=== PATIENT | female | born 1940 | race Caucasian/White ===

== ENCOUNTER 2017-05-16 07:23 | Day surgery (SDC) | payer OTHER ==
[~2017-05-16] VITALS: Ht 162.6 cm; Wt 66.0 kg
[~2017-05-16 07:23] MED LIST: SYNT25TA; [UNRECOGNIZED DRUG - CODE] OP
[2017-05-16 07:52] VITALS: BP 150/93; PULSE 101; RESP 16; TEMP 98.2; O2SAT 97
[2017-05-16] MEDS ORDERED: LEVO75TA3 PO (07:53)
[2017-05-16] MEDS ORDERED: ATOR20TA15 PO (07:53)
[2017-05-16] MEDS ORDERED: LATA0.002 EACH EYE (07:53)
[2017-05-16] MEDS ORDERED: ASPI81TA11 PO (07:53)
[2017-05-16] MEDS ORDERED: COQ-50CA2 (07:53)
[2017-05-16] MEDS ORDERED: diphenhydrAMINE HCL 50 MG CAP PO SCH (08:00)
[2017-05-16] MEDS ORDERED: NS 1000P @30 MLS/HR (KVO) IV SCH (08:00)
[2017-05-16 08:19] LABS: AUTOMATED NEUTROPHIL # 4.4 TH/MM3 (1.8-7.7); BASOPHIL % 0.5 % (0.0-2.0); EOSINOPHIL # 0.1 TH/MM3 (0-0.4); EOSINOPHIL % 1.6 % (0.0-4.0); HEMATOCRIT 41.8 % (35.0-46.0); HEMO FLAGS DIFF FINAL; LYMPH % 20.8 % (9.0-44.0); LYMPHOCYTE # 1.4 TH/MM3 (1.0-4.8); MEAN CELL VOLUME 89.7 FL (80.0-100.0); MEAN CORPUSCULAR HEMOGLOBIN 29.9 PG (27.0-34.0); MEAN CORPUSCULAR HGB CONC 33.3 % (32.0-36.0); MONO % 9.9 % (0.0-8.0); NEUT % 67.2 % (16.0-70.0); PLATELET COUNT 284 TH/MM3 (150-450); RED BLOOD COUNT 4.66 MIL/MM3 (4.00-5.30); RED CELL DISTRIBUTION WIDTH 13.6 % (11.6-17.2); WHITE BLOOD COUNT 6.6 TH/MM3 (4.0-11.0)
[2017-05-16 08:32] LABS: BICARBONATE 29.8 MEQ/L (21.0-32.0); POTASSIUM 3.2 MEQ/L (3.5-5.1)
[2017-05-16 08:33] LABS: APTT (PATIENT) 26.1 SEC (24.3-30.1); INTERNATIONAL NORMALIZED RATIO 0.9 RATIO; PROTHROMBIN TIME - PATIENT 10.2 SEC (9.8-11.6)
[2017-05-16] MEDS ORDERED: HEPARIN-NS/PF INJ 500 ML ONE (09:35)
[2017-05-16] MEDS ORDERED: IOHEXOL 350 MG/ML 50 ML BTL (for Cath Lab) OTHER ONE (09:40)
[2017-05-16] MEDS ORDERED: MIDAZOLAM HCL 2 MG/2 ML VIAL ONE ×2 (09:42→09:58)
[2017-05-16] MEDS ORDERED: VERAPAMIL HCL 5 MG/2 ML VIAL ONE (09:42)
[2017-05-16] MEDS ORDERED: NITROGLYCERIN INJ 5 ML ONE (09:43)
[2017-05-16] MEDS ORDERED: HEPARIN SODIUM - IV 10,000 UNITS/10 ML VIAL ONE (09:43)
--- NOTE | 2017-05-16 10:25 | CATHPROC ---
[facility] HIS Report Study Information Study Number Admission Scheduled Start Study Start [id number] May 16 2017 7:23AM 05/16/2017 May 16 2017 9:42AM Study Type [place] Service Left/Possible PCI Cardiac Catheterization Admit Source Facility Department Other [facility] - Consumer Loan Officer Physician and Clinical Staff Initial [facility] Palliative Senior Np Andrea Waller,RN Recorder Karlene Johns,WOODS RIDER TECH2 Scrub Clemencia Guerrero,PAINTER AND DECORATOR APPRENTICE TECH2 Procedures Performed Procedure Location (Site) Vessel Name Coronary Angiograms LCA Left Coronary Coronary Angiograms RCA Right Coronary Equipment Time Flame Cutting Machine Operator Description Size Mfg Part Number Used/Scraped TRANSDUCER, TRUWAVE [id number] 09:43 TUCKER HERNANDEZ * Used W/STOCKCOCK *[id number] [id number] *[id number] [id number] *[id number] 09:43 [employer]revo PACK, CCL CUSTOM * Used *[id number] 09:43 [employer]re[employer] SUPPORT, ARTERIAL ADULT [id number] Used BAND, RADIAL COMPRESSION TR [id number] 10:10 [employer] MEDICAL 24CM Used SHORT 24 *[id number] 09:43 [email or web address] WIRE, 3MMJ .035 180CM 180CM Used *[id number] 09:43 NAMIC MANIFOLD, 4 PORT * Used *[id number] 09:43 [employer]ED OMNIPAQUE, 350 MG, 150ML 150ML [id number] Used [id number] 09:43 [employer] MEDICAL BLANKET,WARM AIR CCL * Used *[id number] SHEATH, FR6 TRANSRADIAL 09:43 The Political Student FR 6 [id number] Used SLENDER 10CM History: Current Medications Medication Dosage/Unit Route Frequency Last Date/Time Taken ASA Statins (any) Synthroid History: Allergies Allergy Reaction No Known Allergies History: Risk Factors Family History of Hypertension Dyslipidemia Previous [place] Previous Heart Failure Premature CAD No Yes No No No Prior Valve Prior PCI Prior CABG Surgery No No No Cerebrovascular Peripheral Artery Chronic Lung On Dialysis Diabetes Disease Disease Disease No No No No No History: Symptoms/Diagnosis Selection Items SOB History: Other Disease Selection Items Cancer Renal Failure/Insufficiency History: Other Current Smoker No Labs Hgb (g/dl) Hct (%) WBC (l/cumm) Platelets (thousands) 12.00-18.00 37.00-55.00 4.80-10.80 140.00-450.00 13.9 41.8 6.6 284 Glucose (mg/dl) BUN (mg/dl) Creatinine (mg/dl) BUN:Creatinine (1:x) 60.00-110.00 8.00-20.00 0.10-9.00 10.00-20.00 90 15 0.9 16.7 Na (meq/l) K (meq/l) Cl (meq/l) CO2 (mmol/L) 138.00-146.00 3.80-5.10 101.00-111.00 23.00-30.00 143 3.2 106 29.8 PT (sec) PTT (sec) INR (PTT:PT) 9.40-11.40 25.10-32.70 0.50-2.00 10.2 26.1 0.9 CPK-MB (ng/ML) 0.00-7.00 Not Drawn Medication Medication Total Dose (Bolus/Oral) Medication Total Dosage/Unit 1% XYLOCAINE 20 mL FENTANYL 50 mcg OXYGEN 2 l/min RADIAL COCKTAIL 5 mL (Bolus) VERSED 2 mg Medications (Bolus/Oral) Medication Time Given Dosage/Unit Administered By Reason VERSED 05/16/2017 9:57:17 AM 1 mg Andrea Waller 1 mg VERSED given in lab by Andrea Waller RN in Left Antecubital via Peripheral IV. VERSED 05/16/2017 10:01:44 AM 1 mg Andrea Waller 1 mg VERSED given in lab by Andrea Waller RN in Left Antecubital via Peripheral IV. FENTANYL 05/16/2017 10:01:52 AM 50 mcg Andrea Waller 50 mcg FENTANYL given in lab by Andrea Waller RN in Left Antecubital via Peripheral IV. 1% XYLOCAINE 05/16/2017 10:02:11 AM 20 mL Almas Isaacs Patient arrived on 20 mL 1% XYLOCAINE given by Almas Isaacs in Right Radial via Subcutaneous. Ntg 200mcg Verapamil 2.5mg Heparin RADIAL COCKTAIL 05/16/2017 10:03:21 AM 5 mL (Bolus) Almas Isaacs 2500U 5 mL (Bolus) RADIAL COCKTAIL given in lab by Santos-Bhumika, Almas in Right Radial via Radial. Using [Janet ution Name]. Reason: Ntg 200mcg Verapamil 2.5mg Heparin 2500U. OXYGEN 05/16/2017 10:04:09 AM 2 l/min Andrea Waller 2 l/min OXYGEN given in lab by Andrea Waller RN via Nasal. Medication (Drip) Medication Time Given Dosage/Unit Concentration/Unit Diluent (ml) Solutio n IV Solutions 05/16/2017 9:43:53 AM 0 mL (IV) 500 NaCl .9 Patient arrived on IV Solutions in Left Antecubital via Peripheral IV. Pump/Drip Flow = 20 ml/hr usin g NaCl .9. Initial Case Assessment Cardiovascular HR Rhythm NIBP Chest Pain 100 stach 158/98 0 Circulatory - Right Pulses Dorsalis Pedis Femoral Radial 1 2 2 Scale (0,1,2,3,4,d) Circulatory - Left Pulses Dorsalis Pedis Femoral Radial 1 2 Scale (0,1,2,3,4,d) Neurological State Oriented to time-place- Alert Moves all extremities person Respiration - General Respiration Rate SpO2 (%) (B/min) 18 99 Final Case Assessment Cardiovascular HR Rhythm NIBP Chest Pain 89 sr 119/71 0 Circulatory - Right Pulses Dorsalis Pedis Femoral Radial 1 2 2 Scale (0,1,2,3,4,d) Circulatory - Left Pulses Dorsalis Pedis Femoral Radial 1 2 Scale (0,1,2,3,4,d) Neurological State Oriented to time-place- Alert Moves all extremities person Respiration - General Respiration Rate SpO2 (%) O2 (lpm) (B/min) 13 100 2 Chronological Log Time Study Chronological Log 9:40:14 Patient arrived via Bed. 9:40:21 Patient Name, D.O.B, / Armband Verified By R.N. 9:40:27 Pre-op and post- op instructions given; patient acknowledges understanding of instructions. Vitals capture started with the following parameters, Patient=Adult, Interval=5 min, Initial Pr tzarxc=511 mmHg, 9:41:55 Deflation Rate=5 mmHg 9:42:51 JSOH=818/98 mmhg, SpO2=99.0 % 9:43:31 Consent signed by the physician and the patient and verified by the Consumer Loan Officer staff. 9:43:32 Verbal Stimulation=2 Physical Stimulation=2 Airway=2 Respiration=2 TOTAL=8. (0=absent, 1=roland ited, 2=present) 9:43:34 Presedation assessment performed by Consumer Loan Officer RN. 9:43:41 Positive Allens test performed on the right radial and ulnar artery. 9:43:43 Patient has been NPO for More than 6Hrs. 9:43:43 Skin Breakdown-none 9:43:48 Gary Prominences Protected 9:43:52 A # 20 IV was noted in the Antecubital (left). Grade = patent 9:43:53 Patient arrived on IV Solutions in Left Antecubital via Peripheral IV. Pump/Drip Flow = 20 m l/hr using NaCl .9. 9:43:54 History and physical on the chart or being dictated. Assessment: Initial Case, WG=421 BPM, Rhythm=stach, LVJW=558/98 mmhg, Chest Pain=0 Right Pulses: Saeid Ped=1, Femoral=2, Radial=2 9:43:56 Left Pulses: Saeid Ped=1, Femoral=2 Neurological: State=Alert, Ox3, BAUER Respiration: Resp=18 B/min, SpO2=99 % 9:44:23 Reference ECG taken 9:47:34 CH=315 bpm, JCPO=860/90 mmhg, RoJ3=326.0 %, Resp=21 B/min, Pain=0, Jeffrey=10, Haile=2 9:49:28 Right groin and right wrist prepped with 2% chlorhexidine, and draped after a 3 min. waiting time. 9:52:33 HR=94 bpm, HTWB=684/84 mmhg, SpO2=99.0 %, Resp=15 B/min, Pain=0, Jeffrey=10, Haile=2 9:53:41 Pressure channel 1 zeroed. 9:53:50 MD paged 9:56:30 MD responded 9:57:17 1 mg VERSED given in lab by Andrea Waller, RN in Left Antecubital via Peripheral IV. 9:57:34 HR=91 bpm, WEHA=586/86 mmhg, SpO2=98.0 %, Resp=21 B/min 9:57:53 MD arrived. Time Out. Correct patient, correct procedure,correct physician, power injector not loaded with contrast with surgical 10:01:03 team present. Time Out Concurred by MD and individual staff in procedure 10::44 1 mg VERSED given in lab by Andrea Waller, GEMA in Left Antecubital via Peripheral IV. 10::44 Case Start 10::52 50 mcg FENTANYL given in lab by Andrea Waller, RN in Left Antecubital via Peripheral IV. 10:02:11 Patient arrived on 20 mL 1% XYLOCAINE given by Almas Isaacs in Right Radial via Subcut aneous. 10::32 Access site was Radial Artery. right 10::35 HR=91 bpm, ZGSK=584/75 mmhg, SpO2=97.0 %, Resp=15 B/min A SHEATH, FR6 TRANSRADIAL SLENDER 10CM FR 6 was advanced into the Radial (right) using the Perc utaneous 10::02 technique. 5 mL (Bolus) RADIAL COCKTAIL given in lab by Almas Isaacs in Right Radial via Radial. Yi gaytan [Solution Name]. 10:03:21 Reason: Ntg 200mcg Verapamil 2.5mg Heparin 2500U. A JR 4.0 INFINITI CATHETER FR 5 was advanced over a wire. OMNIPAQUE, 350 MG, 150ML 150ML was u sed for 10:03:56 injections. 10:04:09 2 l/min OXYGEN given in lab by Andrea Waller, GEMA via Nasal. Recorded Pressure: Ao, HR=99, Condition=Condition 1 10:04:38 (Aorta) Ao 117/78/97 10:04:55 The RCA was injected and visualized at various angles. OMNIPAQUE, 350 MG, 150ML 150ML use d. After removing the current catheter a JL 3.5 INFINITI CATHETER FR 5 was advanced over a WIRE, 3MMJ .035 180CM 10:06:14 180CM. 10:07:16 The LCA was injected and visualized at various angles. OMNIPAQUE, 350 MG, 150ML 150ML use d. 10:07:32 HR=83 bpm, USIZ=906/67 mmhg, FaU8=378.0 %, Resp=8 B/min, Pain=0, Jeffrey=10, Haile=2 10:09:46 Catheter was removed 10::35 Case End 10:12:29 HR=89 bpm, SDVZ=548/71 mmhg, Resp=13 B/min, Pain=0, Jeffrey=10, Haile=2 Radial Compression Device Used. 12 mLs of air placed in BAND, RADIAL COMPRESSION TR SHORT 24 2 4CM. Affected 10:14:28 hand 99 % O2 saturation. 10:15:14 No case complications noted. 10:15:15 Cine recording checked. 10:15:17 Bedside Report will be given. Assessment: Final Case, HR=89 BPM, Rhythm=sr, FBNH=194/71 mmhg, Chest Pain=0 Right Pulses: Saeid Ped=1, Femoral=2, Radial=2 10:15:21 Left Pulses: Saeid Ped=1, Femoral=2 Neurological: State=Alert, Ox3, BAUER Respiration: Resp=13 B/min, NqN3=699 %, O2=2 lpm 10:17:16 Patient moved to bed 10:19:24 Patient transported to DOCU End Study - Contrast Media Used In Study Contrast Total Opened (mL) Total Used (mL) Total Wasted (mL) Omnipaque 25 25 0 End Study - Maximum Contrast Load Max Contrast Load (mL) 366.7 End Study - Radiation Exposure Fluoro Time (minutes) 2.7 End Study - Sheaths Sheaths Pulled By Sheath Hold Time (min) Clemencia Guerrero End Study - Patient Disposition Complications Transferred To Telemetry Bed
--- NOTE | 2017-05-16 10:42 | MA ---
cc: REINIER PUTNAM DATE: 05/16/2017 DATE OF : 05/27/1936 PROCEDURE PERFORMED 1. Left heart catheterization. 2. Selective right and left coronary angiography. INDICATIONS Severe aortic stenosis. APPROACH Right transradial. PROCEDURE DESCRIPTION Consent signed. The patient was taken to the cardiac cath lab nurse in a fasting state. The right groin and wrist were prepped and draped in a sterile fashion. Using 1% lidocaine for local anesthesia and a micropuncture kit a 6-Czech sheath was inserted into the right radial artery. An antispasmodic cocktail was given then selective right and left coronary angiography was performed with JR4 and a JL 3.5 diagnostic catheters. Angiography was taken in multiple views. The patient has known severe aortic stenosis thus the left ventricle was not crossed. The patient tolerated the procedure well without complications. Estimated blood loss less than 30 cc. Total contrast used 25 cc. The right radial access site was closed with a TR band. ANGIOGRAPHIC RESULTS 1. The right coronary artery is a small codominant vessel. It has a proximal segment DIABETES CLINICAL MANAGER which supplies the midsegment of the right coronary artery through bridging collaterals. The right coronary artery is also filling by collaterals coming from the septals of the LAD. 2. The left main is patent with KARLI-III flow. 3. The LAD is a transapical vessel. It has minimal luminal irregularities throughout. It has two diagonal vessels which are patent and small and also the S1 branches are supplying collaterals to the right coronary artery to the PDA. 4. The left circumflex artery is supplying the PDA. It is a large vessel, has nonobstructive coronary artery disease and minimal luminal irregularities in the midsegment. It is giving off three OM branches which are patent and tortuous as well as the PDA which tapers down distally and is patent. CONCLUSIONS 1. Severe aortic stenosis. 2. One-vessel coronary artery disease with a total occlusion of the proximal segment of the nondominant right coronary artery. RECOMMENDATIONS The patient will go to the DOC unit for post-cath care. She will be referred to the [facility] for follow-up and possible mini AVR in the near future. STS score 2.2%. Reinier Putnam MD INSURANCE CASE MANAGER/BT /10:23 AM /10:34 AM MTDNely
--- NOTE | 2017-05-16 12:25 | EKG ---
Date Performed: 05/16/2017 Time Performed: 07:58:50 PTAGE: 76 years EKG: Sinus rhythm Left axis deviation Right bundle branch block Abnormal ECG PREVIOUS TRACING : 02/10/2000 14.54 Compared to previous tracing, right bundle branch block is now evident. DOCTOR: Ld Allen Interpretating Date/Time 05/16/2017 12:25:14
== END 2017-05-16 13:48 | disposition home or self-care (01) ==
LOC: HDIC 07:23 → HDOC 07:23
PROVIDERS: ATTEND Radiology Vascular & Interventional Radiology
DX: I35.0 Nonrheumatic aortic (valve) stenosis (principal); I45.10 Unspecified right bundle-branch block; E78.00 Pure hypercholesterolemia, unspecified
CPT/HCPCS: 80048; 85025; 85610; 85730; 93005; 93454; C1769; C1893; J1644; J2250; J3010; Q0163; Q9967

== ENCOUNTER → 2017-06-21 | Outpatient (CLI) | payer OTHER ==
[~2017-06-21] MED LIST changes: +ASPI81TA11 PO; +ATOR20TA15 PO; +COQ-50CA2; +IOHEXOL 350 MG/ML 10 ML VIAL (for RAD DIAG) IV ONE; +LATA0.002 EACH EYE; +LEVO75TA3 PO; -SYNT25TA; -[UNRECOGNIZED DRUG - CODE] OP
[2017-06-21 10:35] LABS: ALT (GPT) 30 U/L (10-53); ANION GAP 5 MEQ/L (5-15); AST (GOT) 26 U/L (15-37); BICARBONATE 27.8 MEQ/L (21.0-32.0); BLOOD UREA NITROGEN 15 MG/DL (7-18); CHLORIDE 107 MEQ/L (98-107); GLOMERULAR FILTRATION RATE 66 ML/MIN (>89); SODIUM (NA) 140 MEQ/L (136-145)
[2017-06-21 10:37] LABS: ALKALINE PHOSPHATASE 71 U/L (45-117); TOTAL BILIRUBIN ADULT 0.5 MG/DL (0.2-1.0)
--- NOTE | 2017-06-21 11:47 | RADRPT ---
EXAM DATE/TIME: 06/21/2017 10:12 [facility] COMPARISON: No previous studies available for comparison. INDICATIONS : Evaluate for pneumonia, pneumothorax, or communicable disease. Pre op for aortic valve repair today. MEDICAL HISTORY : None. SURGICAL HISTORY : None. ENCOUNTER: Initial ACUITY: 1 day PAIN SCORE: 0/10 LOCATION: Bilateral chest FINDINGS: PA and lateral views of the chest demonstrate the lungs to be symmetrically aerated without evidence of mass, infiltrate or effusion. Minimal biapical capping. The cardiomediastinal contours are unrema rkable. Osseous structures are intact. CONCLUSION: Minimal biapical capping/scarring. Nothing acute. Romero Parson MD on June 21, 2017 at 11:35 Board Certified Radiologist. This report was verified electronically.
--- NOTE | 2017-06-21 12:09 | PD.CONS ---
History of Present Illness Service CT Surgery Consult Requested By Dr. Santos Reason for Consult severe , dyspnea Primary Care Physician Morgan Castellano MD Diagnoses: (1) Aortic stenosis (2) Diastolic heart failure due to valvular disease History of Present Illness 77 y/o female presents with exertional dyspnea and fatigue. She was found to have severe with a mean gradient of 46mmHg. She denies PND, orthopnea, palpitations, chest pain. Review of Systems Constitutional: COMPLAINS OF: Fatigue, DENIES: Diaphoretic episodes, Fever, Weight gain, Weight loss, Chills, Dizziness, Change in appetite, Night Sweats Endocrine: DENIES: Abnorml menstrual pattern, Heat/cold intolerance, Polydipsia , Polyuria, Polyphagia Eyes: DENIES: Blurred vision, Diplopia, Eye inflammation, Eye pain, Vision loss , Photosensitivity, Double Vision Ears, nose, mouth, throat: DENIES: Tinnitus, Hearing loss, Vertigo, Nasal discharge, Oral lesions, Throat pain, Hoarseness, Ear Pain, Running Nose, Epistaxis, Sinus Pain, Toothache, Odynophagia Respiratory: DENIES: Apneas, Cough, Snoring, Wheezing, Hemoptysis, Sputum production, Shortness of breath Cardiovascular: COMPLAINS OF: Dyspnea on Exertion, DENIES: Chest pain, Palpitations, Syncope, PND, Lower Extremity Edema, Orthopnea, Claudication Gastrointestinal: DENIES: Abdominal pain, Black stools, Bloody stools, Constipation, Diarrhea, Nausea, Vomiting, Difficulty Swallowing, Anorexia Genitourinary: DENIES: Abnormal vaginal bleeding, Dysmenorrhea, Dyspareunia, Sexual dysfunction, Urinary frequency, Urinary incontinence, Urgency, Hematuria , Dysuria, Nocturia, Vaginal discharge Musculoskeletal: DENIES: Joint pain, Muscle aches, Stiffness, Joint Swelling, Back pain, Neck pain Hematologic/lymphatic: DENIES: Bruising, Lymphadenopathy Immunologic/allergic: DENIES: Eczema, Urticaria Neurologic: DENIES: Abnormal gait, Headache, Localized weakness, Paresthesias, Seizures, Speech Problems, Tremor, Poor Balance Psychiatric: DENIES: Anxiety, Confusion, Mood changes, Depression, Hallucinations, Agitation, Suicidal Ideation, Homicidal Ideation, Delusions Past Family Social History Allergies: Coded Allergies: No Known Allergies (Verified , 05/16/17) Past Medical History hyperlipidemia cataract hypothyroid glaucoma Past Surgical History none Reported Medications asa lipitor latanoprost eye drops levothyroxine Family History unremarkable Social History denies tobacco, ETOH use Physical Exam Vital Signs 110/60, 83, 14, afebrile Physical Exam GENERAL: This is a well-nourished, well-developed patient, in no apparent distress. SKIN: No rashes, ecchymoses or lesions. Cool and dry. HEAD: Atraumatic. Normocephalic. No temporal or scalp tenderness. EYES: Pupils equal round and reactive. Extraocular motions intact. No scleral icterus. No injection or drainage. ENT: Nose without bleeding, purulent drainage or septal hematoma. Throat without erythema, tonsillar hypertrophy or exudate. Uvula midline. Airway patent. NECK: Trachea midline. No JVD or lymphadenopathy. Supple, nontender, no meningeal signs. CARDIOVASCULAR: Regular rate and rhythm with 2/6 DEMARIO at the RUSB. RESPIRATORY: Clear to auscultation. Breath sounds equal bilaterally. No wheezes , rales, or rhonchi. GASTROINTESTINAL: Abdomen soft, non-tender, nondistended. No hepato-splenomegaly , or palpable masses. No guarding. MUSCULOSKELETAL: Extremities without clubbing, cyanosis, or edema. No joint tenderness, effusion, or edema noted. No calf tenderness. Negative Homans sign bilaterally. NEUROLOGICAL: Awake and alert. Cranial nerves II through XII intact. Motor and sensory grossly within normal limits. Five out of 5 muscle strength in all muscle groups. Normal speech. Laboratory Laboratory Tests Test 06/21/17 06/21/17 09:15 09:20 Sodium Level 140 Potassium Level 4.0 Chloride Level 107 Carbon Dioxide Level 27.8 Anion Gap 5 Blood Urea Nitrogen 15 Creatinine 0.84 Estimat Glomerular Filtration 66 Rate Random Glucose 95 Calcium Level 9.0 Total Bilirubin 0.5 Aspartate Amino Transf 26 (AST/SGOT) Alanine Aminotransferase 30 (ALT/SGPT) Alkaline Phosphatase 71 Total Protein 7.7 Albumin 4.2 Blood Type A NEGATIVE A NEGATIVE Antibody Screen NEGATIVE Result Diagram: 06/21/17914 Course Patient is s/p CTA today and has no complaints. she is an outpatient Assessment and Plan Problem List: (1) Aortic stenosis Status: Acute (2) Diastolic heart failure due to valvular disease Status: Acute Assessment and Plan 77 y/o female presents with severe symptomatic . Her STS risk follows: RISK SCORES About the STS Risk Calculator Procedure: AV Replacement Risk of Mortality: 1.763% Morbidity or Mortality: 12.121% Long Length of Stay: 4.591% Short Length of Stay: 39.718% Permanent Stroke: 1.618% Prolonged Ventilation: 7.201% DSW Infection: 0.225% Renal Failure: 2.422% Reoperation: 6.194% AVR is recommended. I reviewed the different approaches to AVR and she her prefrence is TAVR. She is being evaluated for TAVR and will be discussed further with the Structural Heart team. Discussed Condition With patient and her sisters Problem Qualifiers (1) Aortic stenosis: Qualified Code: I35.0 - Aortic valve stenosis, unspecified etiology Yary Flowers MD Jun 21, 2017 12:09
--- NOTE | 2017-06-21 12:25 | RADRPT ---
EXAM DATE/TIME: 06/21/2017 09:57 [facility] COMPARISON: No previous studies available for comparison. INDICATIONS : Aortic valve stenosis, pre-op screening. IV CONTRAST: 95 cc Omnipaque 350 (iohexol) IV RADIATION DOSE: 28.54 CTDIvol (mGy) MEDICAL HISTORY : Aortic valve stenosis SURGICAL HISTORY : None. ENCOUNTER: Initial ACUITY: 1 day PAIN SCALE: 0/10 LOCATION: chest TECHNIQUE: Volumetric scanning was performed using a multi-row detector CT scanner. The data was post processed with a variety of visualization algorithms including full volume maximum intensity projection, multi -planar sliding thin slab reformation, curved planar reformation, and surface rendering techniques. Using automated exposure control and adjustment of the mA and/or kV according to patient size, radiat ion dose was kept as low as reasonably achievable to obtain optimal diagnostic quality images. DIC OM format image data is available electronically for review and comparison. FINDINGS: Thoracic/abdominal aorta: The aorta is normal in caliber and course throughout its entirety. The sinus of Valsalva measures 2.8 cm, sinotubular junction 2.4 cm, and mid tubular 3.5 cm in diameter. Arch vessels are patent. No dis section observed. The celiac, SMA, OSIEL, renal arteries, and inflow vessels are patent. Heart and mediastinum: Pronounced calcifications are seen involving the aortic valve. The heart is normal in size. Pulmonary arteries are normal in caliber. Small anterior mediastinal lymph nodes are observed. The largest wit hin the precarinal space. The largest lymph node measures 1.8 x 1.4 cm. Lung parenchyma: Small granulomas seen within the medial left lung base. Mild dependent atelectasis is seen bilaterall y. No mass or infiltrate. Other structures: A 1.8 cm cyst is seen on the lower pole the left kidney. Abdominal viscera is otherwise unremarkable. CONCLUSION: 1. Heavily calcified aortic valve. No aneurysmal change of the aorta. 2. Small lymph nodes within the anterior mediastinum as detailed above. Adenopathy is not visualized elsewhere. This may simply be reactive in nature. A short-term followup CT of the thorax may be consi dered to document stability. 3. Coronary artery atherosclerotic calcifications. Kedar Hurd Jr., MD on June 21, 2017 at 12:16 Board Certified Radiologist. This report was verified electronically.
[2017-06-21 12:50] LABS: BASOPHIL % 0.6 % (0.0-2.0); EOSINOPHIL % 0.9 % (0.0-4.0); HEMO FLAGS DIFF FINAL; LYMPH % 17.1 % (9.0-44.0); LYMPHOCYTE # 0.9 TH/MM3 (1.0-4.8); MEAN CELL VOLUME 91.3 FL (80.0-100.0); MEAN CORPUSCULAR HEMOGLOBIN 30.2 PG (27.0-34.0); MONO % 8.3 % (0.0-8.0); NEUT % 73.1 % (16.0-70.0); PLATELET COUNT 265 TH/MM3 (150-450); RED BLOOD COUNT 4.48 MIL/MM3 (4.00-5.30); RED CELL DISTRIBUTION WIDTH 13.8 % (11.6-17.2); WHITE BLOOD COUNT 5.4 TH/MM3 (4.0-11.0)
--- NOTE | 2017-06-25 10:21 | RSPPFT ---
DATE OF PROCEDURE: 06/21/17 COMMENTS: Spirometry with FVC of 2.2, FEV1 of 1.9, FEV1/FVC ratio at 86%. IMPRESSION: 1. Essentially normal spirometry.
== END ==
LOC: HRAD 08:27 → HDIC 08:44 → HRAD 08:44
PROVIDERS: ATTEND Radiology Vascular & Interventional Radiology
DX: Z01.811 Encounter for preprocedural respiratory examination (principal); I35.0 Nonrheumatic aortic (valve) stenosis; R94.31 Abnormal electrocardiogram [ECG] [EKG]; I45.10 Unspecified right bundle-branch block; H26.9 Unspecified cataract; N18.2 Chronic kidney disease, stage 2 (mild)
CPT/HCPCS: 71020; 74174; 80053; 85025; 86850; 86900; 86901; 94010; Q9967

== ENCOUNTER → 2017-07-24 | Outpatient (CLI) | payer OTHER ==
[~2017-07-24] MED LIST changes: +ASPI81CH25 PO; -COQ-50CA2; +COQ-50CA2 PO; -IOHEXOL 350 MG/ML 10 ML VIAL (for RAD DIAG) IV ONE; +METO25TA3 PO; +THERM PO
[2017-07-24 12:18] LABS: AUTOMATED NEUTROPHIL # 3.9 TH/MM3 (1.8-7.7); BASOPHIL % 0.5 % (0.0-2.0); EOSINOPHIL # 0.1 TH/MM3 (0-0.4); EOSINOPHIL % 1.5 % (0.0-4.0); HEMATOCRIT 42.9 % (35.0-46.0); HEMO FLAGS DIFF FINAL; LYMPH % 23.4 % (9.0-44.0); LYMPHOCYTE # 1.4 TH/MM3 (1.0-4.8); MEAN CELL VOLUME 91.4 FL (80.0-100.0); MEAN CORPUSCULAR HEMOGLOBIN 30.2 PG (27.0-34.0); MONO % 9.9 % (0.0-8.0); NEUT % 64.7 % (16.0-70.0); PLATELET COUNT 280 TH/MM3 (150-450); RED BLOOD COUNT 4.69 MIL/MM3 (4.00-5.30); RED CELL DISTRIBUTION WIDTH 13.6 % (11.6-17.2)
[2017-07-24 12:23] LABS: APTT (PATIENT) 25.7 SEC (24.3-30.1); INTERNATIONAL NORMALIZED RATIO 0.9 RATIO
[2017-07-24 12:23] LABS: BLOOD, URINE NEG (NEG); GLUCOSE,URINE NEG (NEG); KETONE, URINE NEG (NEG); NITRITE,URINE NEG (NEG); SQUAMOUS EPITHELIAL CELL URINE <1 /hpf (0-5); URINE COLOR LIGHT-YELLOW (YELLW/STRAW)
[2017-07-24 12:33] LABS: BICARBONATE 28.4 MEQ/L (21.0-32.0); POTASSIUM 4.6 MEQ/L (3.5-5.1)
[2017-07-24 12:43] LABS: COMMENT (UR) CULT NOT INDICATED; CULTURE IF INDICATED CULT NOT INDICATED
[2017-07-24 14:24] LABS: MRSA PCR NEGATIVE (NEGATIVE); STAPH AUREUS PCR POSITIVE (NEGATIVE)
--- NOTE | 2017-07-25 17:13 | EKG ---
Date Performed: 07/24/2017 Time Performed: 11:26:11 PTAGE: 77 years EKG: Sinus rhythm MARKED RIGHT AXIS DEVIATION PATTERN CONSISTENT WITH PULMONARY DISEASE RIGHT BUNDLE BRANCH BLOCK Sinc e previous tracing, no significant change noted ABNORMAL ECG PREVIOUS TRACING : 05/16/2017 07.58 DOCTOR: Leni Dotson Interpretating Date/Time 07/25/2017 17:06:23
== END ==
LOC: CPRE 10:58
PROVIDERS: ATTEND Thoracic Surgery (Cardiothoracic Vascular Surgery)
DX: Z01.812 Encounter for preprocedural laboratory examination (principal); Z01.810 Encounter for preprocedural cardiovascular examination; I50.30 Unspecified diastolic (congestive) heart failure; I35.0 Nonrheumatic aortic (valve) stenosis; I45.10 Unspecified right bundle-branch block
CPT/HCPCS: 80048; 81001; 85025; 85610; 85730; 86850; 86900; 86901; 87640; 87641; 93005

== ENCOUNTER 2017-07-26 05:21 | Inpatient (IN) | payer OTHER, MEDICARE ==
[~2017-07-26] VITALS: Ht 162.6 cm; Wt 68.5 kg
[~2017-07-26 05:21] MED LIST changes: +AMINOCAPROIC ACID INJ 250 MG/ML 20 ML VIAL IV ONE; -ASPI81CH25 PO; +CALCIUM CHLORIDE 10% SOLN 1 GRAM/10 ML SYR IV ONE; +EPINEPHrine HCL (1:10,000) 1 MG/10 ML SYRINGE IV ONE; +GLYCOPYRROLATE 0.2 MG/ML VIAL IV ONE; +HEPARIN SODIUM - SQ 10,000 UNITS/ML VIAL SQ ONE; +MAGNESIUM SULFATE 1000 MG/2 ML VIAL (PED) IV ONE; -METO25TA3 PO; +NITROGLYCERIN-D5W 50 MG/250 ML 250 ML IV ONE; +PHENYLEPHRINE HCL 10 MG/ML VIAL IV ONE; +PROTAMINE SULFATE 250 MG/25 ML VIAL IV ONE; +SODIUM BICARBONATE 8.4% INJ 50 MEQ/50 ML SYR IV ONE; -THERM PO; +VECURONIUM BROMIDE 10 MG VIAL IV ONE
[2017-07-26] MEDS ORDERED: CHLORHEXIDINE GLUCONATE 2 % 1 PACK (2 CLOTHS) TOPICAL PRN (05:45)
[2017-07-26] MEDS ORDERED: METOPROLOL TARTRATE 25 MG TAB PO PRN (05:45)
[2017-07-26] MEDS ORDERED: SODIUM CHLORID 0.9% 500 ML IV PRN (05:45)
[2017-07-26] MEDS ORDERED: CHLORHEXIDINE GLUCONATE 4% SOLN 120 ML BTL TOPICAL SCH (05:45)
[2017-07-26] MEDS ORDERED: METOPROLOL TARTRATE 25 MG TAB PO SCH (05:45)
[2017-07-26] MEDS ORDERED: SODIUM CHLORIDE 0.9% FLUSH 10 ML FLUSH IV FLUSH PRN ×2 (05:45)
[2017-07-26] MEDS ORDERED: POVIDONE IODINE 5% (ANTISEPSIS KIT) 4 APPLICATIONS EACH NARE PRN (05:45)
[2017-07-26] MEDS ORDERED: ceFAZolin 2 GM PREMIX 50 ML IV SCH (05:45)
[2017-07-26] MEDS ORDERED: INSULIN HUMAN REGULAR 1,000 UNITS/10 ML VIAL SQ PRN (05:45)
[2017-07-26] MEDS ORDERED: LACTATED RINGER'S 1000 ML IV PRN (05:45)
[2017-07-26] MEDS ORDERED: HEPARIN SODIUM - SQ 10,000 UNITS/ML VIAL ONE (06:38)
[2017-07-26] MEDS ORDERED: ceFAZolin 2 GM PREMIX 50 ML ONE (06:38)
[2017-07-26] MEDS ORDERED: methylPREDNISolone SOD SUCC 125 MG/2 ML VIAL ONE (06:38)
[2017-07-26] MEDS ORDERED: VANCOMYCIN HCL 1000 MG VIAL ONE (06:38)
[2017-07-26] MEDS ORDERED: CUSTODIOL HTK IRR SOLN 3,000 ML ONE (07:01)
[2017-07-26] MEDS ORDERED: MANNITOL INJ 100 ML ONE (07:01)
[2017-07-26] MEDS ORDERED: SODIUM BICARBONATE 8.4% INJ 100 ML ONE (07:02)
[2017-07-26] MEDS ORDERED: HEPARIN SODIUM - IV 10,000 UNITS/10 ML VIAL ONE (07:03)
[2017-07-26] MEDS ORDERED: CEFAZOLIN 500 MG in NS IRR BTL 500 ML IRRIGATION SCH (07:30)
[2017-07-26] MEDS ORDERED: INSULIN REGULAR 100 UNITS in NS 100 ML IV SCH (07:30)
[2017-07-26] MEDS ORDERED: MUPIROCIN 2% OINT 22 GM TUBE EACH NARE SCH (09:00)
[2017-07-26] MEDS ORDERED: VECURONIUM BROMIDE 10 MG VIAL IV ONE (11:09)
[2017-07-26] MEDS ORDERED: PROPOFOL 500 MG/50 ML BTL IV ONE (11:09)
[2017-07-26] MEDS ORDERED: NITROGLYCERIN 50 MG/DEXTROSE 5% SOLN 250 ML BTL IV ONE (11:09)
[2017-07-26] MEDS ORDERED: AMINOCAPROIC ACID INJ 250 MG/ML 20 ML VIAL IV ONE (11:09)
[2017-07-26] MEDS ORDERED: NORMOSOL R INJ 2,000 ML IV ONE (11:09)
[2017-07-26] MEDS ORDERED: LACTATED RINGER'S 1000 ML INJ 2,000 ML IV ONE (11:09)
[2017-07-26] MEDS ORDERED: BUPIVACAINE HCL PF 0.5% 30 ML VIAL ONE (11:15)
--- NOTE | 2017-07-26 11:26 | PD.OP ---
cc: Almas Isaacs MD; Yary Flowers MD Operative Report Date of Surgery: Jul 26, 2017 Preoperative Diagnosis: (1) Aortic stenosis (2) Diastolic heart failure due to valvular disease Postoperative Diagnosis: same Procedure: Minimally invasive AVR with a 19 Intuity tissue valve Ultrasound-guided left femoral arterial and venous percutaneous access with arterial Perclose closure Anesthesia: Dr. Murphy Surgeon: Yary Flowers Pattern Grader(s): Dr. Manuel Sawyer Operation and Findings: The risks, benefits, complications, treatment options, and expected outcomes were discussed with the patient. The possibilities of reaction to medication, pulmonary aspiration, perforation of viscus, bleeding, recurrent infection, the need for additional procedures, failure to diagnose a condition, and creating a complication requiring transfusion or operation were discussed with the patient. The patient concurred with the proposed plan, giving informed consent. The site of surgery properly noted/marked. The patient was taken to Operating Room, identified as Nati Duenas and the procedure verified as Minimally Invasive Aortic Valve Replacement. A Time Out was held and the above information confirmed. Standard monitoring lines and Powell catheter were placed. General anesthesia was induced. The patient was prepped and draped in a sterile fashion. . A 6 cm right anterior thoracotomy was performed and the 3rd rib was shingled. The right internal mammary artery and vein were ligated and divided. An Magan retractor was placed followed by a small chest retractor. The pericardium was opened and a pericardial sling was created using interrupted 0 silk sutures. A small 1 cm incision was made at the 6th intercostal space and an LV vent and pericardial suction were placed through this access port. The aorta was dissected posteriorly for crossclamp placement. The left femoral artery and vein were percutaneously accessed using ultrasound guidance. The patient was heparinized for cardiopulmonary bypass. The left femoral artery was cannulated with a 17F [employer] arterial cannula. The left femoral vein was cannulated with a 21 [employer] cannula under HUY guidance. Two Perclose devices were placed in the artery for later closure Antegrade Custodiol cardioplegia were employed. Additionally, hand-held coronary cardioplegia cannula was used during the procedure. The patient was placed on cardiopulmonary bypass. An aortic cross-clamp was applied and the heart was arrested using cold blood cardioplegia delivered through a 14G catheter. The aorta was opened above the sinotubular ridge and the aortic valve was exposed. On opening the aorta, the valve appeared calcified. The valve was resected as well as all annular calcification, sized for a 19 mm Intuity tissue valve which was placed with 3,2-0 Tycron valve sutures. The valve seated well and was balloon deployed. The aorta was closed with running 4-0 Prolene suture. The patient systemically rewarmed. The heart was vigorously deaired with a clamp on. The clamp was removed, deairing continued. The patient was easily weaned from cardiopulmonary bypass. Decannulation was carried out without incident and the artery was secured with the Perclose sutures. The vein was controlled with manual compression. Protamine was given. There was no adverse reaction. Intraoperative HUY following the procedure showed a well-seated aortic valve with no perivalvular leak and preserved ventricular function. Wound was checked for hemostasis was obtained using electrocautery. A 32F right pleural chest tube was placed and secured to the skin with a 0 silk suture. The 3rd rib was reapproximated to the sternum with a small plate and screws. The fascia and pectoralis were closed with 0 Vicryl. The subcutaneous tissue was closed using a running 3-0 Monocryl suture. The skin was closed with 4-0 Monocryl. Sterile dressings were placed. At the end of the operation, all sponge, instruments, and needle counts were correct. The patient was transferred to the CVICU in stable condition. Yary Flowers MD Jul 26, 2017 11:26
[2017-07-26] MEDS ORDERED: RESP: RACEPINEPHRINE 2.25% 0.5 ML NEB NEB PRN (11:30)
[2017-07-26] MEDS ORDERED: DEXTROSE 50% IN WATER 50 ML VIAL(D50) IV PUSH PRN (11:30)
[2017-07-26] MEDS ORDERED: POTASSIUM CHLOR 20 MEQ PREMIX 100 ML IV PRN ×2 (11:30)
[2017-07-26] MEDS ORDERED: METOPROLOL TARTRATE 5 MG/5 ML VIAL IV PUSH PRN (11:30)
[2017-07-26] MEDS ORDERED: MAGNESIUM SULFATE INJ 2 GM in SODIUM CHLORIDE 0.9% INJ 100 ML IV PRN ×4 (11:30)
[2017-07-26] MEDS ORDERED: ALBUMIN HUMAN 5% 12.5 GM/250 ML BOTTLE IV PRN (11:30)
[2017-07-26] MEDS ORDERED: CLEVIDIPINE INJ 50 ML IV PRN (11:30)
[2017-07-26] MEDS ORDERED: POTASSIUM CHLORIDE 20 MEQ CONTROLLED RELEASE TAB PO PRN ×2 (11:30)
[2017-07-26] MEDS ORDERED: oxyCODONE/ACETAMINOPHEN 5 MG/325 MG TAB PO PRN (11:30)
[2017-07-26] MEDS ORDERED: hydrALAZINE HCL 20 MG/ML VIAL IV PRN (11:30)
[2017-07-26] MEDS ORDERED: CALCIUM CHLORIDE INJ 1 GM in SODIUM CHLORIDE 0.9% INJ 100 ML IV PRN (11:30)
[2017-07-26] MEDS ORDERED: ACETAMINOPHEN 650 MG SUPP RECTAL PRN (11:30)
[2017-07-26] MEDS ORDERED: ONDANSETRON HCL 4 MG/2 ML VIAL IV PUSH PRN (11:30)
[2017-07-26] MEDS ORDERED: RESP: ALBUTEROL 2.5 MG/IPRATROPIUM 0.5 MG NEB (PRN) NEB (11:30)
[2017-07-26] MEDS ORDERED: CALCIUM CHLORIDE 10% 1 GRAM/10 ML VIAL IV PRN (11:30)
[2017-07-26] MEDS ORDERED: Post-op Orders (for Pharmacy) MISC OTHER ONE (11:30)
[2017-07-26] MEDS ORDERED: ceFAZolin INJ 1,000 MG VIAL ONE (11:42)
[2017-07-26 12:00] VITALS: BP_SYST 104; BP_SYST 105; BP_DIAS 44; BP_DIAS 50; PULSE 55; PULSE 58; RESP 12; TEMP 97.5; O2SAT 98
[2017-07-26] MEDS ORDERED: INSULIN REGULAR (IV INFUSION) 100 UNITS in SODIUM CHLORIDE 0.9% INJ 99 ML IV SCH (12:00)
[2017-07-26] MEDS ORDERED: fentaNYL CITRATE 1000 MCG/20 ML VIAL ONE (12:16)
[2017-07-26] MEDS ORDERED: MIDAZOLAM HCL 5 MG/5 ML VIAL ONE (12:16)
--- NOTE | 2017-07-26 12:46 | RADRPT ---
EXAM DATE/TIME: 07/26/2017 12:18 [facility] COMPARISON: CHEST PA & LAT, June 21, 2017, 10:12. INDICATIONS : Post CABG MEDICAL HISTORY : Cardiovascular disease. SURGICAL HISTORY : CABG. ENCOUNTER: Initial ACUITY: 1 day PAIN SCORE: Non-responsive. LOCATION: Bilateral chest FINDINGS: A single portable frontal view the chest shows a stent mounted aortic valve. The heart is at the uppe r limits of normal in terms of size. Pulmonary vasculature is normal. A right thoracostomy tube obser brionna without pneumothorax. Tip of endotracheal tube 4 cm proximal to the darryn. Tip of the nasogastri c tube courses off the inferior margin of the film. A right-sided central line and Doucette-Nirav catheter . A left lower lobe intraalveolar opacity. Bony structures are unremarkable. CONCLUSION: 1. Lines and tubes as detailed above without pneumothorax. 2. Left basilar atelectasis. Kedar Hurd Jr., MD on July 26, 2017 at 12:40 Board Certified Radiologist. This report was verified electronically.
[2017-07-26] MEDS: ACETAMINOPHEN 1000 MG/100 ML VIAL IV SCH ×2 (13:06→17:46)
[2017-07-26 13:26] VITALS: O2SAT 100
[2017-07-26 13:45] VITALS: O2SAT 99
[2017-07-26 15:00] VITALS: BP_SYST 102; BP_SYST 106; BP_DIAS 45; BP_DIAS 60; PULSE 56; PULSE 65; RESP 18; TEMP 98; O2SAT 99
[2017-07-26] MEDS: KETOROLAC TROMETHAMINE 30 MG/ML (IVP) VIAL IV PUSH PRN (15:14)
[2017-07-26] MEDS: POTASSIUM CHLOR 20 MEQ PREMIX 100 ML IV PRN ×2 (15:15→17:46)
[2017-07-26] MEDS: LACTATED RINGER'S 1000 ML INJ 500 ML IV PRN ×2 (15:26→17:30)
[2017-07-26] MEDS: RESP: ALBUTEROL 2.5 MG/IPRATROPIUM 0.5 MG NEB (SCH) NEB ×2 (16:50→21:37)
[2017-07-26] MEDS ORDERED: CALCIUM CHLORIDE INJ 1 GM in SODIUM CHLORIDE 0.9% INJ 100 ML IV ONE ×4 (17:15)
[2017-07-26 20:00] VITALS: BP_SYST 127; BP_SYST 130; BP_DIAS 48; BP_DIAS 68; PULSE 64; PULSE 82; RESP 18; TEMP 97.2; O2SAT 99
[2017-07-26 21:40] VITALS: O2SAT 97
[2017-07-27] VITALS (18 sets, daily range): BP systolic 112–135; BP diastolic 43–66; PULSE 62–108; RESP 16–20; TEMP 97.6–99.2; O2SAT 91–97
[2017-07-27] MEDS: ACETAMINOPHEN 1000 MG/100 ML VIAL IV SCH ×2 (00:44→06:48)
[2017-07-27] MEDS: RESP: ALBUTEROL 2.5 MG/IPRATROPIUM 0.5 MG NEB (SCH) NEB ×3 (03:31→19:32)
--- NOTE | 2017-07-27 04:17 | RADRPT ---
EXAM DATE/TIME: 07/27/2017 03:47 [facility] COMPARISON: CHEST SINGLE AP, July 26, 2017, 12:18. INDICATIONS : Post CABG MEDICAL HISTORY : Cardiovascular disease. SURGICAL HISTORY : CABG. ENCOUNTER: Subsequent ACUITY: 2 days PAIN SCORE: 7/10 LOCATION: Bilateral chest FINDINGS: Portable AP view the chest demonstrates a normal-sized cardiac silhouette in this patient post valve replacement. Right IJ line distal tip is in the SVC. A right chest tube is present and no pneumothora x is visualized. There is right chest wall soft tissue air. Multiple lines overlie the patient. No pl eural effusion or airspace consolidation is visualized. Patient has been extubated and nasogastric tu be has been removed. CONCLUSION: Right chest tube remains present and no pneumothorax is visualized. There is right chest wall soft ti ssue air. Jose Yang MD on July 27, 2017 at 4:14 Board Certified Radiologist. This report was verified electronically.
[2017-07-27 04:56] LABS: HEMATOCRIT 31.4 % (35.0-46.0); MEAN CELL VOLUME 91.2 FL (80.0-100.0); MEAN CORPUSCULAR HEMOGLOBIN 30.3 PG (27.0-34.0); MEAN CORPUSCULAR HGB CONC 33.2 % (32.0-36.0); PLATELET COUNT 112 TH/MM3 (150-450); RED BLOOD COUNT 3.45 MIL/MM3 (4.00-5.30); RED CELL DISTRIBUTION WIDTH 13.4 % (11.6-17.2); REVIEW FLAG FINAL; WHITE BLOOD COUNT 11.7 TH/MM3 (4.0-11.0)
[2017-07-27 05:27] LABS: BICARBONATE 23.3 MEQ/L (21.0-32.0); MAGNESIUM 2.2 MG/DL (1.5-2.5); POTASSIUM 4.2 MEQ/L (3.5-5.1)
[2017-07-27] MEDS: PANTOPRAZOLE SOD 40 MG DELAYED RELEASE TAB PO SCH (06:48)
[2017-07-27] MEDS: ASPIRIN 81 MG CHEW TAB PO SCH (08:02)
[2017-07-27] MEDS ORDERED: MUPIROCIN 2% OINT 1 APPLIC/GM SYR EACH NARE SCH (09:15)
[2017-07-27] MEDS ORDERED: GLUCAGON 1 MG/ML VIAL OTHER PRN (09:45)
[2017-07-27] MEDS ORDERED: BISACODYL 10 MG SUPP RECTAL PRN (09:45)
[2017-07-27] MEDS ORDERED: SOD PHOSPHATE/SOD BIPHOSPHATE (ADULT) ENEMA 133ML RECTAL PRN (09:45)
[2017-07-27] MEDS ORDERED: DEXTROSE 50% IN WATER 50 ML VIAL(D50) IV PRN (09:45)
[2017-07-27] MEDS ORDERED: PILL SPLITTER OTHER PRN (10:30)
[2017-07-27] MEDS: METOPROLOL TARTRATE 25 MG TAB PO SCH ×2 (10:43→21:57)
[2017-07-27] MEDS: POTASSIUM CHLORIDE 20 MEQ CONTROLLED RELEASE TAB PO SCH (10:43)
[2017-07-27] MEDS: FUROSEMIDE 40 MG/4 ML VIAL IV PUSH SCH (10:43)
[2017-07-27] MEDS: LEVOTHYROXINE SODIUM 75 MCG TAB PO SCH (11:00)
[2017-07-27] MEDS: DOCUSATE SODIUM 100 MG CAP PO SCH ×2 (11:00→21:57)
[2017-07-27] MEDS: INSULIN ASPART SUPPLEMENTAL SCALE SQ SCH ×4 (11:09→22:00)
--- NOTE | 2017-07-27 13:10 | PD.CAR.PN ---
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 incision intact and well approximated right upper chest wall / A&V wires in place HEAD: Normocephalic. EYES: No scleral icterus. No injection or drainage. NECK: Supple, trachea midline. No JVD or lymphadenopathy. CARDIOVASCULAR: Regular rate and rhythm without murmurs, gallops, or rubs. mild general edema RESPIRATORY: Breath sounds equal bilaterally. No accessory muscle use. chest tube in place right anterior chest wall / no air leak drained 120cc/12 hrs GASTROINTESTINAL: Abdomen soft, non-tender, nondistended. MUSCULOSKELETAL: No cyanosis, or edema. BACK: Nontender without obvious deformity. No CVA tenderness. Vital Signs Date Time Temp Pulse Resp B/P (MAP) Pulse Ox O2 Delivery O2 Flow Rate FiO2 07/27/17 11:00 96 Nasal Cannula 1.00 07/27/17 11:00 98 07/27/17 11:00 97.6 98 17 124/60 (81) 96 Arterial Line 07/27/17 10:08 96 21 07/27/17 08:00 98.3 86 16 112/57 (75) 96 130/58 (82) 07/27/17 08:00 96 Nasal Cannula 2.00 07/27/17 08:00 86 07/27/17 08:00 86 112/57 (75) 130/58 (82) 07/27/17 04:00 98.7 92 18 121/54 (76) 95 115/43 (67) 07/27/17 04:00 95 Nasal Cannula 2.00 07/27/17 04:00 92 07/27/17 00:00 96 Nasal Cannula 2.00 07/27/17 00:00 97.8 63 20 112/54 (73) 96 131/49 (76) 07/27/17 00:00 62 07/26/17 21:40 97 Nasal Cannula 2.00 07/26/17 20:00 82 07/26/17 20:00 97.2 64 18 127/68 (87) 99 130/48 (75) 07/26/17 20:00 99 Nasal Cannula 2.00 07/26/17 18:01 18 07/26/17 18:01 18 07/26/17 15:15 65 106/45 07/26/17 15:11 18 07/26/17 15:00 98.0 65 18 102/60 (74) 99 106/45 (65) 07/26/17 15:00 98 Nasal Cannula 3.00 07/26/17 15:00 56 07/26/17 13:45 99 Nasal Cannula 2.00 07/26/17 13:45 99 Nasal Cannula 2 07/26/17 13:42 61 110/47 07/26/17 13:36 50 142/58 07/26/17 13:32 67 142/60 07/26/17 13:26 100 40 07/26/17 13:26 40 07/26/17 13:13 50 149/74 Labs: Laboratory Tests Test 07/27/17 04:30 White Blood Count 11.7 TH/MM3 (4.0-11.0) Red Blood Count 3.45 MIL/MM3 (4.00-5.30) Hemoglobin 10.4 GM/DL (11.6-15.3) Hematocrit 31.4 % (35.0-46.0) Mean Corpuscular Volume 91.2 FL (80.0-100.0) Mean Corpuscular Hemoglobin 30.3 PG (27.0-34.0) Mean Corpuscular Hemoglobin Concent 33.2 % (32.0-36.0) Red Cell Distribution Width 13.4 % (11.6-17.2) Platelet Count 112 TH/MM3 (150-450) Mean Platelet Volume 8.2 FL (7.0-11.0) Blood Urea Nitrogen 18 MG/DL (7-18) Creatinine 0.69 MG/DL (0.50-1.00) Random Glucose 119 MG/DL (74-106) Calcium Level 8.0 MG/DL (8.5-10.1) Magnesium Level 2.2 MG/DL (1.5-2.5) Sodium Level 143 MEQ/L (136-145) Potassium Level 4.2 MEQ/L (3.5-5.1) Chloride Level 109 MEQ/L (98-107) Carbon Dioxide Level 23.3 MEQ/L (21.0-32.0) Anion Gap 11 MEQ/L (5-15) Estimat Glomerular Filtration Rate 82 ML/MIN (>89) Result Diagram: 07/27/1742907/27/17429 Telemetry: NSR (1) Aortic stenosis (2) S/P AVR (aortic valve replacement) Plan: on ASA, BB pulm toileting nebs, ezpap acapella OOB ambulate pt as silk suture left groin CM to eval for HHC (3) Blood loss anemia Plan: will monitor (4) Diastolic heart failure due to valvular disease Plan: stable , EF 68% gentle diuresis Nohemi Shankar Jul 27, 2017 13:10
--- NOTE | 2017-07-27 13:12 | HHI.FF ---
Face to Face Verification Diagnosis: (1) Aortic stenosis (2) Blood loss anemia (3) S/P AVR (aortic valve replacement) Physical Therapy Order: Evaluate and Treat Home Health Nursing Order: Signs/symptoms of disease process Medication education-adverse effect Wound care and dressing changes Nursing assessment with vital signs Instructions: Heart and Vascular Surgery patients *Special attention to sternal dressing Mandatory frequency Assess and evaluation, 4 days in a row The next week 3X week 2 times a week for 4 weeks 1 time a week for 5 weeks Schedule Heart and Vascular patients for full 60 day certification period Initial visit Review Open Heart Surgery Discharge Instructions (Sternal precautions, Activity, Elastic hose, Incision care, Driving, Incentive spirometry, Smoking, [place], Work and other) Need Betadine to paint incision Medication reconciliation Importance of follow up care/ check on appointments Make calendar record temperature daily When to call [facility] at Home nurse, review instructions, phone list Incentive Spirometry, demonstration Visit 1- Begin discharge instruction for patient family and/ or caregiver using teach back method- Signs and symptoms of infection Disease characteristics Medicines and side effects Foods and nutrition/ appetite Infection control/ hand washing/ hygiene Visit 2- Continue teaching Discharge instructions- include additional information on smoking cessation , sternal dressing (sternal vac) Visit 3- Continue teaching- Cough and deep breathing, incision monitoring. Choose my plate Visit 4- Continue teaching- Discuss limitations Discuss how they are feeling Discuss progress toward goals Remaining visits- continue teaching and monitoring Incentive spirometry Q1 hr x 10, while awake, also use acapella device hourly whole awake Sternal Breast Bone Precautions: NO pushing or pulling, ( pt must use sternal pillow to support chest with all activities and with coughing ( takes up to 3 months breast bone to heal ) Daily incision care: ok to shower daily, no tub bath. Wash all incisions with liquid dial soap, clean wash cloth to each site, rinse and pat dry. Observe for any signs of infection, such as drainage which is dark yellow, becerra, green or foul smelling. Immediately report to the surgeon any drainage from the chest incision, or legs, and for any abnormal drainage from the chest tube sites. Notify surgeon if any temp >101.5 degrees F. When specialty dressing removed/ or if you do not have one, continue to shower daily as above, then rinse and pat incision dry and paint with betadine daily x 5 days. Allow steri strips to fall off if you have any. Avoid lotions, creams, salves, oils, etc. for the first month For Dr. Flowers patients , please obtain CBC, BMP, PA & Lat CXR in 2 weeks, results to Dr. Flowers ( prescription will be given) ( ) (Tele: [phone]) , Valve replacement pts will need 2decho in 2 weeks with results to Dr. Flowers . Please obtain 2 d echo at your floorworker lasting office if possible F/U appointment: as per DC instructions: PCP in 2 weeks, CV surgeon 2 weeks, [employer] 3-4 weeks For any questions regarding incisions/ dressing / meds / post op care or above Symptoms, Sunday 8am-5pm Heart & Vascular Surgery Office ( Dr. Sawyer & Dr. Flowers), After Hours / Nights (5pm -8am) Weekends and Holidays Please call [facility] ([facility]) Charge Nurse I have seen patient Nati Duenas on 07/27/17. My clinical findings support the need for the requested home health care services because: Deconditioned w/ increased weakness I certify that my clinical findings support that this patient is homebound because: Post-op weakness Nohemi Shankar Jul 27, 2017 13:12
[2017-07-27] MEDS: ACETAMINOPHEN 325 MG TAB PO PRN ×2 (17:47→21:59)
--- NOTE | 2017-07-27 20:31 | EKG ---
Date Performed: 07/27/2017 Time Performed: 06:09:06 PTAGE: 77 years EKG: Sinus rhythm Left axis deviation RBBB with left anterior fascicular block Abnormal ECG PREVIOUS TRACING : 07/24/2017 11.26 Compared to prior tracing no significant change DOCTOR: Kelechi Rivera Interpretating Date/Time 07/27/2017 20:29:13
[2017-07-27] MEDS: ATORVASTATIN 20 MG TAB PO SCH (21:57)
[2017-07-27] MEDS: SENNOSIDES 8.6 MG TAB PO SCH (21:58)
[2017-07-27] MEDS: LATANOPROST 0.005% OPHT SOLN 2.5 ML BTL EACH EYE SCH (21:59)
[2017-07-28] VITALS (30 sets, daily range): BP systolic 117–146; BP diastolic 59–76; PULSE 73–106; RESP 16–20; TEMP 98–99.1; O2SAT 90–97
[2017-07-28] MEDS: INSULIN ASPART SUPPLEMENTAL SCALE SQ SCH ×5 (02:00→21:00)
[2017-07-28 05:12] LABS: AUTOMATED NEUTROPHIL # 8.3 TH/MM3 (1.8-7.7); BASOPHIL % 0.2 % (0.0-2.0); EOSINOPHIL % 0.5 % (0.0-4.0); HEMATOCRIT 28.2 % (35.0-46.0); LYMPH % 9.8 % (9.0-44.0); MEAN CELL VOLUME 91.4 FL (80.0-100.0); MEAN CORPUSCULAR HEMOGLOBIN 30.3 PG (27.0-34.0); MEAN CORPUSCULAR HGB CONC 33.2 % (32.0-36.0); MONO % 9.3 % (0.0-8.0); NEUT % 80.2 % (16.0-70.0); PLATELET COUNT 88 TH/MM3 (150-450); RED BLOOD COUNT 3.09 MIL/MM3 (4.00-5.30); RED CELL DISTRIBUTION WIDTH 13.6 % (11.6-17.2); WHITE BLOOD COUNT 10.3 TH/MM3 (4.0-11.0)
[2017-07-28 05:15] LABS: HEMO FLAGS AUTO DIFF
[2017-07-28 05:46] LABS: BICARBONATE 29.8 MEQ/L (21.0-32.0); MAGNESIUM 2.1 MG/DL (1.5-2.5)
[2017-07-28] MEDS: PANTOPRAZOLE SOD 40 MG DELAYED RELEASE TAB PO SCH (06:36)
[2017-07-28] MEDS: LEVOTHYROXINE SODIUM 75 MCG TAB PO SCH (06:36)
[2017-07-28 07:42] LABS: PLATELET ESTIMATE SMEAR LOW (NORMAL); PLATELET MORPHOLOGY NORMAL (NORMAL); SCAN/DIFF AUTO DIFF CONFIRMED
[2017-07-28] MEDS: RESP: ALBUTEROL 2.5 MG/IPRATROPIUM 0.5 MG NEB (SCH) NEB (08:03)
[2017-07-28] MEDS: ASPIRIN 81 MG CHEW TAB PO SCH ×2 (09:00→09:34)
[2017-07-28] MEDS: POLYETHYLENE GLYCOL 17 GM PKG PO SCH (09:00)
[2017-07-28] MEDS: DOCUSATE SODIUM 100 MG CAP PO SCH ×2 (09:34→21:54)
[2017-07-28] MEDS: POTASSIUM CHLORIDE 20 MEQ CONTROLLED RELEASE TAB PO SCH (09:34)
[2017-07-28] MEDS: MAGNESIUM HYDROXIDE SUSP 30 ML CUP PO SCH (09:34)
[2017-07-28] MEDS: FUROSEMIDE 40 MG/4 ML VIAL IV PUSH SCH (09:35)
[2017-07-28] MEDS: MULTIVITAMINS/MINERALS THERAPEUTIC TAB PO SCH (09:35)
[2017-07-28] MEDS: METOPROLOL TARTRATE 25 MG TAB PO SCH ×2 (09:35→21:54)
--- NOTE | 2017-07-28 10:03 | PD.CAR.PN ---
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 , initially referred for TAVR, low STS and fragility scores surgery: 07/26 Minimally invasive AVR with a 19 Intuity tissue valve Ultrasound-guided left femoral arterial and venous percutaneous access with arterial Perclose closure 07/27 pt doing well on nasal cannula BB started, gentle diuresis / OOB ambulate leave chest tubes in silk stitch in place to left groin stable for transfer to stepdown 07/28/17 Doing well, no complaints Objective: Vital Signs Date Time Temp Pulse Resp B/P (MAP) Pulse Ox O2 Delivery O2 Flow Rate FiO2 07/28/17 07:01 95 07/28/17 06:00 80 07/28/17 05:00 78 07/28/17 04:00 78 07/28/17 03:00 99.1 82 16 139/74 (95) 90 07/28/17 03:00 90 Room Air 07/28/17 03:00 79 07/28/17 02:00 76 07/28/17 01:00 76 07/28/17 00:00 80 07/27/17 23:00 76 07/27/17 23:00 99.2 83 20 135/66 (89) 91 07/27/17 23:00 91 Room Air 07/27/17 22:00 106 07/27/17 21:00 92 07/27/17 20:21 98.7 108 18 122/63 (82) 95 07/27/17 20:00 108 07/27/17 20:00 122/63 (82) 07/27/17 19:33 94 21 07/27/17 19:00 95 Room Air 07/27/17 19:00 91 07/27/17 18:47 18 07/27/17 18:31 89 07/27/17 17:04 81 07/27/17 16:32 76 07/27/17 15:29 97 Room Air 07/27/17 15:29 87 07/27/17 15:29 98.3 87 18 124/60 (81) 97 07/27/17 15:02 82 07/27/17 14:11 76 07/27/17 11:00 96 Nasal Cannula 1.00 07/27/17 11:00 98 07/27/17 11:00 97.6 98 17 124/60 (81) 96 Arterial Line 07/27/17 10:08 96 21 Labs: Laboratory Tests Test 07/28/17 04:40 White Blood Count 10.3 TH/MM3 (4.0-11.0) Red Blood Count 3.09 MIL/MM3 (4.00-5.30) Hemoglobin 9.4 GM/DL (11.6-15.3) Hematocrit 28.2 % (35.0-46.0) Mean Corpuscular Volume 91.4 FL (80.0-100.0) Mean Corpuscular Hemoglobin 30.3 PG (27.0-34.0) Mean Corpuscular Hemoglobin Concent 33.2 % (32.0-36.0) Red Cell Distribution Width 13.6 % (11.6-17.2) Platelet Count 88 TH/MM3 (150-450) Mean Platelet Volume 7.7 FL (7.0-11.0) Neutrophils (%) (Auto) 80.2 % (16.0-70.0) Lymphocytes (%) (Auto) 9.8 % (9.0-44.0) Monocytes (%) (Auto) 9.3 % (0.0-8.0) Eosinophils (%) (Auto) 0.5 % (0.0-4.0) Basophils (%) (Auto) 0.2 % (0.0-2.0) Neutrophils # (Auto) 8.3 TH/MM3 (1.8-7.7) Lymphocytes # (Auto) 1.0 TH/MM3 (1.0-4.8) Monocytes # (Auto) 1.0 TH/MM3 (0-0.9) Eosinophils # (Auto) 0.0 TH/MM3 (0-0.4) Basophils # (Auto) 0.0 TH/MM3 (0-0.2) CBC Comment AUTO DIFF Differential Comment AUTO DIFF CONFIRMED Platelet Estimate LOW (NORMAL) Platelet Morphology Comment NORMAL (NORMAL) Blood Urea Nitrogen 15 MG/DL (7-18) Creatinine 0.81 MG/DL (0.50-1.00) Random Glucose 108 MG/DL (74-106) Calcium Level 7.7 MG/DL (8.5-10.1) Magnesium Level 2.1 MG/DL (1.5-2.5) Sodium Level 140 MEQ/L (136-145) Potassium Level 4.0 MEQ/L (3.5-5.1) Chloride Level 106 MEQ/L (98-107) Carbon Dioxide Level 29.8 MEQ/L (21.0-32.0) Anion Gap 4 MEQ/L (5-15) Estimat Glomerular Filtration Rate 68 ML/MIN (>89) Result Diagram: 07/28/1743907/28/17439 Imaging: Last Impressions Chest X-Ray 07/27/17 0500 Signed Impressions: Service Date/Time: Thursday, July 27, 2017 03:47 - CONCLUSION: Right chest tube remains present and no pneumothorax is visualized. There is right chest wall soft tissue air. Jose Yang MD Cardiovascular: RRR Telemetry: NSR Pulmonary: CTA GI/: NABS Incision: dry and intact CT: 15ml/12hrs Plan: D/C chest tubes/wires \Encourage ambulation Diurese Stim BM Increase BB dose (1) Aortic stenosis (2) S/P AVR (aortic valve replacement) Plan: on ASA, BB pulm toileting nebs, ezpap acapella OOB ambulate pt as silk suture left groin CM to eval for HHC (3) Blood loss anemia Plan: will monitor (4) Diastolic heart failure due to valvular disease Plan: stable , EF 68% gentle diuresis Yary Flowers MD Jul 28, 2017 10:03
[2017-07-28] MEDS: KETOROLAC TROMETHAMINE 30 MG/ML (IVP) VIAL IV PUSH PRN (10:42)
[2017-07-28] MEDS: SENNOSIDES 8.6 MG TAB PO SCH (21:54)
[2017-07-28] MEDS: ATORVASTATIN 20 MG TAB PO SCH (21:54)
[2017-07-28] MEDS: LATANOPROST 0.005% OPHT SOLN 2.5 ML BTL EACH EYE SCH (21:55)
[2017-07-29] VITALS (15 sets, daily range): BP systolic 124–144; BP diastolic 63–70; PULSE 70–94; RESP 18; TEMP 97.7–98.1; O2SAT 93–95
[2017-07-29] MEDS: LEVOTHYROXINE SODIUM 75 MCG TAB PO SCH (05:13)
[2017-07-29] MEDS: PANTOPRAZOLE SOD 40 MG DELAYED RELEASE TAB PO SCH (05:13)
[2017-07-29] MEDS: INSULIN ASPART SUPPLEMENTAL SCALE SQ SCH (06:22)
[2017-07-29] MEDS ORDERED: BACITRACIN OINT 0.9 GM PKT ONE (07:56)
[2017-07-29] MEDS: FUROSEMIDE 40 MG/4 ML VIAL IV PUSH SCH (07:59)
[2017-07-29] MEDS: MAGNESIUM HYDROXIDE SUSP 30 ML CUP PO SCH (08:00)
[2017-07-29] MEDS: ASPIRIN 81 MG CHEW TAB PO SCH (08:00)
[2017-07-29] MEDS: POTASSIUM CHLORIDE 20 MEQ CONTROLLED RELEASE TAB PO SCH (08:00)
[2017-07-29] MEDS: MULTIVITAMINS/MINERALS THERAPEUTIC TAB PO SCH (08:00)
[2017-07-29] MEDS: DOCUSATE SODIUM 100 MG CAP PO SCH (08:00)
[2017-07-29] MEDS: METOPROLOL TARTRATE 25 MG TAB PO SCH (08:01)
[2017-07-29] MEDS: POLYETHYLENE GLYCOL 17 GM PKG PO SCH (08:02)
[2017-07-29] MEDS ORDERED: METO25TA3 PO (09:46)
[2017-07-29] MEDS ORDERED: ASPI81CH25 PO (09:46)
[2017-07-29] MEDS ORDERED: THERM PO (09:46)
--- NOTE | 2017-07-29 09:49 | HHI.DS ---
Discharge Summary Admission Date Jul 26, 2017 at 05:21 Discharge Date: Jul 29, 2017 Admitting Diagnosis Aortic stenosis Diastolic HF (1) Aortic stenosis Diagnosis: Principal ICD Codes: I35.0 - Nonrheumatic aortic (valve) stenosis Status: Acute (2) Diastolic heart failure due to valvular disease Diagnosis: Principal ICD Codes: I50.30 - Unspecified diastolic (congestive) heart failure; I38 - Endocarditis, valve unspecified Status: Acute Procedures Minimally invasive AVR with a 19 Intuity tissue valve Brief History 77/ female, hx of severe aortic stenosis , diastolic HF with EF 68% , underwent Heart cath 05/16/[address] Santos, 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 CBC/BMP: 07/28/17 0440 07/28/17 0440 Significant Findings Laboratory Tests Test 07/27/17 04:30 07/28/17 04:40 White Blood Count 11.7 TH/MM3 (4.0-11.0) Red Blood Count 3.45 MIL/MM3 (4.00-5.30) 3.09 MIL/MM3 (4.00-5.30) Hemoglobin 10.4 GM/DL (11.6-15.3) 9.4 GM/DL (11.6-15.3) Hematocrit 31.4 % (35.0-46.0) 28.2 % (35.0-46.0) Platelet Count 112 TH/MM3 (150-450) 88 TH/MM3 (150-450) Random Glucose 119 MG/DL (74-106) 108 MG/DL (74-106) Calcium Level 8.0 MG/DL (8.5-10.1) 7.7 MG/DL (8.5-10.1) Chloride Level 109 MEQ/L (98-107) Estimat Glomerular Filtration Rate 82 ML/MIN (>89) 68 ML/MIN (>89) Neutrophils (%) (Auto) 80.2 % (16.0-70.0) Monocytes (%) (Auto) 9.3 % (0.0-8.0) Neutrophils # (Auto) 8.3 TH/MM3 (1.8-7.7) Monocytes # (Auto) 1.0 TH/MM3 (0-0.9) Platelet Estimate LOW (NORMAL) Anion Gap 4 MEQ/L (5-15) Imaging Last Impressions Chest X-Ray 9/1/17 0500 Signed Impressions: Service Date/Time: Thursday, July 27, 2017 03:47 - CONCLUSION: Right chest tube remains present and no pneumothorax is visualized. There is right chest wall soft tissue air. Jose Yang MD PE at Discharge chest - CTA COR - RRR ABD - soft, NT wound - dry and intact Hospital Course surgery: 07/26 Minimally invasive AVR with a 19 Intuity tissue valve Ultrasound-guided left femoral arterial and venous percutaneous access with arterial Perclose closure 07/27 pt doing well on nasal cannula BB started, gentle diuresis / OOB ambulate leave chest tubes in silk stitch in place to left groin stable for transfer to stepdown Pt Condition on Discharge: Good Discharge Disposition: Disch w/ Home Health Serv Discharge Instructions DIET: Follow Instructions for: Heart Healthy Diet Activities you can perform: Weight Bearing as Noemi, Shower Only-No Bath Activities to avoid: Strenuous Activity, Driving Follow up Referrals: Appointment for Follow Up Appointment for Follow Up PCP Follow-up New Orders: 2D ECHO - 2 Weeks BASIC METABOLIC PROF - 2 Weeks CBC NO DIFF - 2 Weeks X-RAY CHEST PA & LAT - 2 Weeks New Medications: Aspirin (Aspirin Low Strength) 81 Mg Chew 81 MG PO DAILY for Blood Clot Prevention for 90 Days, #100 EA 3 Refills Metoprolol Tartrate (Metoprolol Tartrate) 25 Mg Tab 25 MG PO BID for Blood Pressure Management for 30 Days, #60 TAB 3 Refills Multiple Vitamins W/ Minerals (Thera M Plus) 1 Tab 1 TAB PO DAILY for Nutritional Supplement, #100 TAB 5 Refills Continued Medications: Atorvastatin (Atorvastatin) 20 Mg Tab 20 MG PO HS for Cholesterol Management, #30 TAB 0 Refills Coenzyme Q10 (Ubidecarenone) (Coq-10) 50 Mg Cap 1 CAP PO DAILY Latanoprost Opth Drops (Latanoprost Opth Drops) 0.005% Drops 1 DROP EACH EYE HS for Glaucoma, #2.5 ML 0 Refills Refrigerate until opened. Levothyroxine (Levothyroxine) 75 Mcg Tab 75 MCG PO DAILY for Thyroid, #30 TAB 0 Refills Discontinued Medications: Aspirin DR (Aspirin EC) 81 Mg Tabdr 81 MG PO DAILY, TAB 0 Refills Yary Flowers MD Jul 29, 2017 09:49
== END 2017-07-29 12:35 | disposition home health service (06) | DRG 220 ==
LOC: HSDI 05:21 → HCVR 13:00 → HCIN 07-27 12:30
PROVIDERS: ADMIT Thoracic Surgery (Cardiothoracic Vascular Surgery); ATTEND Thoracic Surgery (Cardiothoracic Vascular Surgery)
PROC: B246ZZ4 Ultrasonography of Right and Left Heart, Transesophageal (ICD-10-PCS; 2017-07-26)
PROC: 02RF08Z Replacement of Aortic Valve with Zooplastic Tissue, Open Approach (ICD-10-PCS; principal; 2017-07-26 07:08)
PROC: 5A1221Z Performance of Cardiac Output, Continuous (ICD-10-PCS; 2017-07-26 07:08)
DX: I35.0 Nonrheumatic aortic (valve) stenosis (principal); I50.30 Unspecified diastolic (congestive) heart failure; I25.82 Chronic total occlusion of coronary artery; I25.10 Atherosclerotic heart disease of native coronary artery without angina pectoris; D50.0 Iron deficiency anemia secondary to blood loss (chronic); E03.9 Hypothyroidism, unspecified; H40.9 Unspecified glaucoma
CPT/HCPCS: 36430; 71010; 76937; 80048; 81001; 82948; 83735; 85025; 85027; 85610; 85730; 86850; 86900; 86901; 86920; 87640; 87641; 88305; 88311; 93005; 93318; 94002; 94150; 94640; 94664; 94667; 94668; C1713; C9248; J0131; J0171; J0690; J1644; J1815; J1817; J1885; J1940; J2150; J2250; J2370; J2405; J2720; J2930; J3010; J3370; J3475; J3480; J7120; P9016